=== PATIENT | male | born 1980 ===

== ENCOUNTER 2020-11-13 12:00 | Outpatient (CLI) | payer BC, SELFPAY ==
--- NOTE | 2020-11-13 12:23 | DI.RAD_ITS ---
Exam(s) XR ANKLE RT COMPLETE EXAM: XR ANKLE RT COMPLETE CLINICAL HISTORY: RT ANKLE PAIN, M25.571. TECHNIQUE: 2D digital imaging was performed. COMPARISON: No exams were available for comparison FINDINGS: BONES: No acute fracture is present. No bony destructive lesion is seen. Well corticated osseous den sities are seen in the lateral ankle. These appear chronic. JOINTS: The ankle mortise is normally aligned. SOFT TISSUE: There is soft tissue swelling about the ankle particularly laterally. IMPRESSION: 1. No acute fracture or dislocation. 2. Soft tissue swelling about the ankle, particularly laterally. DATA REPOSITORY: RADIATION DOSE DELIVERED:
== END 2020-11-13 12:20 ==
PROVIDERS: Visit Provider Physician Assistant Medical
DX: M79.89 Other specified soft tissue disorders; M25.571 Pain in right ankle and joints of right foot
CPT/HCPCS: 73610